=== PATIENT | female | born 1995 ===

== ENCOUNTER 2023-01-27 21:51 | Emergency (ER) | payer MEDICAID, OTHER ==
[~2023-01-27] VITALS: Ht 157.5 cm; Wt 110.0 kg
[2023-01-27 23:29] LABS: COVID19 ANTIGEN SOFIA FIA NEGATIVE (NEGATIVE); Rapid Influenza A Negative (Negative); Rapid Influenza B Negative (Negative)
[2023-01-28 00:28] VITALS: BP 119/85; PULSE 90; TEMP 98.9
[2023-01-28] MEDS ORDERED: IPRATROPIUM BROM 0.5 MG/2.5ML INH SOL NEB ONE (00:45)
[2023-01-28] MEDS ORDERED: DexAMETHasone SOD PHOS 10MG/1ML VIAL INJ IM ONE (00:45)
[2023-01-28] MEDS ORDERED: ALBUTEROL SULF 2.5 MG/0.5ML(0.5%) NEB SOLN NEB ONE (00:45)
[2023-01-28] MEDS ORDERED: FLUT1SPR5 ×3 (00:47→01:25)
[2023-01-28] MEDS ORDERED: PRED20TA2 PO ×3 (00:47→01:25)
[2023-01-28] MEDS ORDERED: ALBUAER3 IN ×3 (00:47→01:25)
[2023-01-28] MEDS ORDERED: AUG875T PO ×3 (00:47→01:25)
[2023-01-28] MEDS ORDERED: BENZ200C64 PO ×3 (00:47→01:25)
[2023-01-28 00:55] VITALS: RESP 18; O2SAT 97
== END 2023-01-28 01:32 | disposition home or self-care (01) ==
LOC: ER 21:51
DX: J01.90 Acute sinusitis, unspecified (principal); J45.901 Unspecified asthma with (acute) exacerbation; R07.89 Other chest pain; Z20.822 Contact with and (suspected) exposure to COVID-19
CPT/HCPCS: 36415; 71045; 87426; 87804; 96372; 99284; J1100; J7644